=== PATIENT | male | born 1995 | race Caucasian/White ===

== ENCOUNTER 2019-10-06 15:30 | Emergency (ER) | payer MEDICAID ==
[~2019-10-06] VITALS: Ht 162.6 cm; Wt 88.6 kg
[2019-10-06] MEDS ORDERED: HYDROCODONE/ACETAMINOPHEN 5-325 MG TABLET PO ONE (15:45)
[2019-10-06] MEDS ORDERED: SODIUM CHLORIDE 0.9% 250 ML IRRIG SOLUTION BOTTLE IRRIG ONE (15:45)
[2019-10-06] MEDS ORDERED: PERTUSS(ACELL),DIPH,TET VAC/PF 0.5 ML VIAL IM ONE (15:45)
[2019-10-06] MEDS ORDERED: LIDOCAINE 1% 10 ML VIAL INJ ONE (16:45)
[2019-10-06] MEDS ORDERED: CeFAZolin 2 GM/DEXTROSE 50 ML IV ONE (17:30)
[2019-10-06] MEDS ORDERED: GENTAMICIN 80 MG/NACL ISO-OSM 50 ML IV ONE (17:30)
[2019-10-06] MEDS ORDERED: BACITRACIN 0.9 GM PACKET OINTMENT TP ONE (18:00)
[2019-10-06 18:34] VITALS: BP 146/92
== END 2019-10-06 19:16 | disposition home or self-care (01) ==
LOC: EMS 15:33
DX: S61.315A Laceration without foreign body of left ring finger with damage to nail, initial encounter (principal); S60.411A Abrasion of left index finger, initial encounter; S60.413A Abrasion of left middle finger, initial encounter; S60.417A Abrasion of left little finger, initial encounter; W23.0XXA Caught, crushed, jammed, or pinched between moving objects, initial encounter; Y93.89 Activity, other specified; Y92.89 Other specified places as the place of occurrence of the external cause; Y99.8 Other external cause status
CPT/HCPCS: 12002; 73130; 90471; 90715; 96365; 96368; 99284; J0690; J1580; J3490